=== PATIENT | male | born 1970 | race Two or more races ===

== ENCOUNTER 2023-04-10 06:45 | Day surgery (SDC) | payer OTHER ==
[~2023-04-10] VITALS: Ht 172.7 cm; Wt 95.7 kg
[~2023-04-10 06:45] MED LIST: COZAAR50 MG PO; LANSOPRAZOLE PO
== END 2023-04-10 17:05 | disposition home or self-care (01) ==
LOC: CIR.AMB 06:45
PROVIDERS: ATTEND Specialist
DX: L72.0 Epidermal cyst (principal); Z20.822 Contact with and (suspected) exposure to COVID-19; D68.8 Other specified coagulation defects; D65 Disseminated intravascular coagulation [defibrination syndrome]